=== PATIENT | female | born 1975 | race Caucasian/White ===

== ENCOUNTER → 2017-10-04 | Outpatient (CLI) | payer MEDICAID ==
[2017-10-04 16:37] LABS: HEMOGLOBIN 12.5 g/dL (12.2-16.2); LYMPH # 1.3 K/mm3 (0.7-4.5); LYMPH % 6.5 % (10-50.0)
[2017-10-04 17:33] LABS: NEUTROPHILS 85 % (42-76)
[2017-10-04 19:27] LABS: BUN 7 mg/dL (7-18)
[2017-10-04 20:02] LABS: GFR (ESTIMATED) 91 ML/MIN (59-)
== END ==
LOC: LAB 15:51
PROVIDERS: Internal Medicine Adolescent Medicine
DX: J18.9 Pneumonia, unspecified organism (principal)

== ENCOUNTER → 2017-10-06 | Outpatient (CLI) | payer MEDICAID ==
[2017-10-06 18:23] LABS: HEMOGLOBIN 12.5 g/dL (12.2-16.2); LYMPH # 1.7 K/mm3 (0.7-4.5); LYMPH % 9.7 % (10-50.0)
[2017-10-06 19:17] LABS: NEUTROPHILS 80 % (42-76)
[2017-10-06 20:06] LABS: BUN 11 mg/dL (7-18); GFR (ESTIMATED) 68 ML/MIN (59-)
== END ==
LOC: LAB 17:35
PROVIDERS: Nurse Practitioner Family
DX: E87.6 Hypokalemia (principal); J18.9 Pneumonia, unspecified organism